=== PATIENT | female | born 1995 | race Caucasian/White ===

== ENCOUNTER 2018-11-15 18:12 | Emergency (ER) | payer OTHER, SELFPAY ==
[2018-11-15 18:16] VITALS: BP 121/56; PULSE 63; RESP 18; TEMP 36.9; O2SAT 100; BMI 22.6
[2018-11-15 18:46] LABS: RBC Urine 5-10/HPF (0-5/HPF)
[2018-11-15 18:47] LABS: Amorphous Sediment Urine 1+; Bacteria Urine Few (2-10); Squamous Epithelial Cell Urine 1-5 /HPF; WBC Urine 10-30/HPF (0-5/HPF)
[2018-11-15 18:48] LABS: Culture Indicated Urine Specimen Cultured
--- NOTE | 2018-11-15 19:00 | ED_ITS ---
HPI - Female Genitourinary General Chief complaint: Urogenital-Female Stated complaint: possible UTI Time Seen by Provider: 11/15/18 19:00 Source: patient Mode of arrival: ambulatory Limitations: no limitations History of Present Illness HPI Narrative: 23-year-old otherwise healthy female here for evaluation of less than 12 hr of dysuria and burning and lower abdominal pain. She states she started to not feel well last evening and things got worse as today went on. She has had a urinary tract infection the past states this feels like urinary tract infection. No fevers. No vomiting. No back pain. No bowel changes. Related Data Previous Rx's Medication Instructions Recorded nitrofurantoin monohyd/m-cryst 100 mg PO BID #10 cap 11/15/18 [Macrobid] phenazopyridine [Pyridium] 100 mg PO TID PRN 2 Days #6 tab 11/15/18 Allergies Allergy/AdvReac Type Severity Reaction Status Date / Time Penicillins Allergy Hives Verified 11/15/18 18:21 Review of Systems Constitutional Denies fever(s) and Denies headache(s) ENT Ears, Nose, Mouth, and Throat: Denies headache(s) Cardiovascular Denies chest pain and Denies dyspnea Respiratory Denies dyspnea Gastrointestinal Gastrointestinal: Reports abdominal pain, Denies nausea and Denies vomiting Genitourinary Reports dysuria, Denies flank pain, Denies urinary incontinence, Denies urinary hesitancy, Reports urinary urgency and Denies vaginal discharge Musculoskeletal Denies myalgias and Denies arthralgias Integumentary/Breasts Denies lesions and Denies rash Neurologic Denies headache(s) Hematologic/Lymphatic Comments: Not on anticoagulation [facility] Medical History Healthy adult (Acute) Surgical History No pertinent past surgical history (Acute) Social History Smoking Status: Never smoker Exam Initial Vital Signs Initial Vital Signs: Vital Signs Temperature 98.5 F 11/15/18 18:16 Pulse Rate 63 11/15/18 18:16 Respiratory Rate 18 11/15/18 18:16 Blood Pressure 121/56 L 11/15/18 18:16 Pulse Oximetry 100 11/15/18 18:16 Const General: cooperative, healthy appearing, comfortable, well developed, well groomed and No acute distress Orientation: alert, awake and oriented x3 Resp Effort & Inspection: normal respiratory effort Cardio Rate: regular rate Back/Spine/Pelvis Back: No CVA tenderness Skin Rashes: no rashes Neuro General: alert, awake and oriented x3 Extrem General: normal to inspection and capillary refill normal Psych Appearance: grossly normal and well kempt Course Orders Ordered: ED Orders 11/15/18 18:25 Urine Culture Stat Urine Microscopic Stat Discontinued Medications Ibuprofen (Advil) 800 mg PO NOW ONE Stop: 11/15/18 19:02 Last Admin: 11/15/18 19:13 Dose: 800 mg Nitrofurantoin Macrocrystals (Macrobid 100 Mg Capsule) 100 mg PO NOW ONE Stop: 11/15/18 19:13 Last Admin: 11/15/18 19:13 Dose: 100 mg Phenazopyridine HCl (Pyridium) 200 mg PO NOW ONE Stop: 11/15/18 19:02 Last Admin: 11/15/18 19:13 Dose: 200 mg Vital Signs - 8 hr 11/15/18 18:16 Temperature 98.5 F Pulse Rate 63 Respiratory Rate 18 Blood Pressure 121/56 L Pulse Oximetry 100 MDM - Female Genitourinary Lab Data Attestation: I reviewed the patient's lab results. Lab Results 11/15/18 Range/Units 18:25 Urine RBC 5-10/hpf H (0-5/HPF) Urine WBC 10-30/hpf H (0-5/HPF) Ur Squamous Epith Cells 1-5 /hpf Amorphous Sediment 1+ Urine Bacteria Few (2-10) H (None) Ur Culture Indicated? Specimen cultured Point of Care Testing Test Results Negative Urine Dip Bedside Urine Glucose Negative Bedside Urine Bilirubin - Negative Bedside Urine Ketone - Negative Urine Specific [place] 1.005 Bedside Urine Occult Blood +++ Bedside Urine pH 6.0 Bedside Urine Protein + 30 Bedside Urine Urobilinogen - Negative Bedside Urine Nitrite - Negative Bedside Urine Leukocytes ++ 125 Esterase MDM Narrative Medical decision making narrative: Patient with history and physical and lab report consistent with a urinary tract infection. Physical exam is not consistent with pyelonephritis. She was given 1st dose of antibiotics here in the emergency department along with Pyridium. Was sent home with prescriptions for these medications. She was given return precautions. She expressed understanding and agreement with plan. Discharge Plan Departure Patient Disposition: Home Clinical Impression: Urinary tract infection Discharge Date/Time: 11/15/18 19:15 Interventions: ED Discharge Assessment Last Done: 11/15/18 19:15 Instructions: DI for Urinary Tract Infection (UTI) Activity Restrictions/Additional Instructions: You were given your 1st dose of antibiotics here in the emergency department. Recommend that you fill the prescription tomorrow for both the peridium which is a bladder anesthetic and also the antibiotic prescription. Take them as directed. Increase your fluid intake. Return to the emergency department for any new or worsening symptoms. Prescriptions: New phenazopyridine [Pyridium] 100 mg tablet 100 mg PO TID PRN (Reason: pain) 2 Days Qty: 6 RF: 0 nitrofurantoin monohyd/m-cryst [Macrobid] 100 mg capsule 100 mg PO BID Qty: 10 RF: 0
[2018-11-15] MEDS: NITROFURANTOIN ER 100 MG CAPSULE PO (19:13)
[2018-11-15] MEDS: IBUPROFEN 400 MG TABLET 800 MG PO (19:13)
[2018-11-15] MEDS: PHENAZOPYRIDINE 100 MG TABLET 200 MG PO (19:13)
== END 2018-11-15 19:15 | disposition home or self-care (01) ==
PROVIDERS: Emergency Provider Emergency Medicine
DX: N39.0 Urinary tract infection, site not specified (principal)
CPT/HCPCS: 81003; 81015; 81025; 87077; 87086; 87186; 99283

== ENCOUNTER 2022-04-24 13:12 | Emergency (ER) | payer OTHER, SELFPAY ==
[2022-04-24 13:26] VITALS: BP 114/55; PULSE 70; RESP 14; TEMP 36.6; O2SAT 98; BMI 23.3
--- NOTE | 2022-04-24 14:55 | ED_ITS ---
HPI - Back Pain/Injury <NO Kelly - Last Filed: 04/24/22 15:01> General Chief Complaint: Back Pain/Injury Stated Complaint: Pulled a muscle in her back Time Seen by Provider: 04/24/22 14:33 Source: patient History of Present Illness HPI Narrative: This is a 27-year-old female who presents to the emergency department with midline this is low back pain after she lifted up a 50 lb weight two days ago. She states that she has a history of low back pain, states that she has gotten a referral to physical therapy in the past but she has not gone. Patient denies any weakness, sensation changes or radiation of her pain, denies any fever, chills, difficulty ambulating, or incontinence. Patient states that she used ice the 1st day and rested and this was helpful for her pain, states the last two days have forced her to lay down most of the time because she has pain with movement. She denies taking any medications prior to arrival. Patient denies any recent trauma, denies any hematuria. Denies any fever, chills, nausea, or vomiting. Related Data Previous Rx's Medication Instructions Recorded nitrofurantoin 100 mg PO BID #10 caps 11/15/18 monohydrate/macrocrystals 100 mg capsule (Macrobid) lidocaine 5 % topical patch 1 patch topical DAILY PRN pain #15 04/24/22 (Lidoderm) ea methocarbamol 500 mg tablet 500 mg PO BID PRN muscle spasm #14 04/24/22 tabs naproxen 250 mg tablet 250 mg PO BID PRN pain #20 tabs 04/24/22 Allergies Allergy/AdvReac Type Severity Reaction Status Date / Time Penicillins Allergy Hives Verified 04/24/22 13:26 Review of Systems <NO Kelly - Last Filed: 04/24/22 15:01> Review of Systems Narrative: General: denies fever, chills Head/Neck: denies headache, neck pain Eyes: denies visual changes, eye pain Cardio: denies chest pain, palpitations Respiratory: denies shortness of breath, cough GI: denies abdominal pain, nausea, vomiting, or diarrhea : denies dysuria, hematuria or flank pain MSK: denies new joint pain, muscle weakness or swelling, endorses some swelling over the musculature in her low back where she is tender Skin: denies rash, itching or wound Neuro: denies numbness, tingling, dizziness Patient History <NO Kelly - Last Filed: 04/24/22 15:01> Medical History Healthy adult Surgical History No pertinent past surgical history Social History Smoking Status: Never smoker Smoking Status: Never smoker alcohol intake frequency: a few times a week Substance Use Type: does not use Exam <NO Kelly - Last Filed: 04/24/22 15:01> Narrative Exam Narrative: Independently reviewed vitals signs and nursing notes. General: Awake, alert, nontoxic, no cardiorespiratory distress Head/Neck: Atraumatic, neck supple Eyes: EOMI, conjunctiva normal Nose: nares patent, no rhinorrhea Mouth/Throat: moist mucus membranes, posterior pharynx without erythema or lesion Cardio: Regular rate and rhythm, no peripheral edema Respiratory: respirations unlabored without wheezing, stridor, or rales. No retractions, hypoxia or tachypnea GI: Abdomen soft, nontender to palpation x4 quadrants, no guarding or rebound tenderness MSK: Moves all extremities, neurovascularly intact, range of motion without deficit, patient appears stiff and sore but does not have any range of motion deficit, can bend over, no radiation of her pain down her extremities, no lower extremity weakness, Skin: Normal capillary refill, no rash Neuro: Normal speech and cognition, normal gait Initial Vital Signs Initial Vital Signs: Vital Signs Temperature 97.9 F 04/24/22 13:26 Pulse Rate 70 04/24/22 13:26 Respiratory Rate 14 04/24/22 13:26 Blood Pressure 114/55 L 04/24/22 13:26 Pulse Oximetry 98 04/24/22 13:26 Oxygen Delivery Method 04/24/22 13:26 <Girish Castaneda DO - Last Filed: 04/24/22 16:17> Initial Vital Signs Initial Vital Signs: Vital Signs Temperature 97.9 F 04/24/22 13:26 Pulse Rate 70 04/24/22 13:26 Respiratory Rate 14 04/24/22 13:26 Blood Pressure 114/55 L 04/24/22 13:26 Pulse Oximetry 98 04/24/22 13:26 Oxygen Delivery Method 04/24/22 13:26 Course <NO Kelly - Last Filed: 04/24/22 15:01> Orders Ordered: Discontinued Medications Ketorolac Tromethamine (Ketorolac 10 Mg Tablet) 10 mg PO NOW ONE Stop: 04/24/22 14:48 Last Admin: 04/24/22 15:00 Dose: 10 mg Documented By: AT Lidocaine (Lidocaine Patch 1 Each Adh..Patch) 1 each TOP NOW ONE Stop: 04/24/22 14:48 Last Admin: 04/24/22 15:01 Dose: 1 each Documented By: AT Methocarbamol (Methocarbamol 500 Mg Tablet) 500 mg PO NOW ONE Stop: 04/24/22 14:48 Last Admin: 04/24/22 15:00 Dose: 500 mg Documented By: AT Vital Signs Vital signs: Vital Signs - 8 hr 04/24/22 13:26 Temperature 97.9 F Pulse Rate 70 Respiratory Rate 14 Blood Pressure 114/55 L Pulse Oximetry 98 Oxygen Delivery Method Room Air <Girish Castaneda DO - Last Filed: 04/24/22 16:17> Orders Ordered: Discontinued Medications Ketorolac Tromethamine (Ketorolac 10 Mg Tablet) 10 mg PO NOW ONE Stop: 04/24/22 14:48 Last Admin: 04/24/22 15:00 Dose: 10 mg Documented By: AT Lidocaine (Lidocaine Patch 1 Each Adh..Patch) 1 each TOP NOW ONE Stop: 04/24/22 14:48 Last Admin: 04/24/22 15:01 Dose: 1 each Documented By: AT Methocarbamol (Methocarbamol 500 Mg Tablet) 500 mg PO NOW ONE Stop: 04/24/22 14:48 Last Admin: 04/24/22 15:00 Dose: 500 mg Documented By: AT Vital Signs Vital signs: Vital Signs - 8 hr 04/24/22 13:26 Temperature 97.9 F Pulse Rate 70 Respiratory Rate 14 Blood Pressure 114/55 L Pulse Oximetry 98 Oxygen Delivery Method Room Air MDM - Back Pain/Injury <NO Kelly - Last Filed: 04/24/22 15:01> MDM Narrative Medical decision making narrative: This is a 27-year-old female with history of low back injury with chronic low back pain presents to the emergency department with exacerbation of her low back pain two days ago when she lifted up a 50 lb weight. She states that her pain is midline and sore, denies any weakness, sensation changes, difficulty ambulating, incontinence, or other concerning symptom. She states that she has [email or web address] insurance, has received a referral to physical therapy in the past but she has not con before. She denies any recent trauma. Patient was nontender over her spinal processes, no ecchymosis, crepitus, irregularities or palpable. She has muscle tension over her low lumbar paraspinal musculature. No CVA tenderness on exam, treated patient with p.o. Toradol in the emergency department, lidocaine patch, methocarbamol, gave her prescription of methocarbamol, lidocaine patches, and naproxen, encourage hydration, light activity without significant exertion, physical therapy follow-up and [place] get [place] through [email or web address]. Patient states understanding, Multiple etiologies of back pain considered including; Epidural abscess, cauda equina, mass occupying lesion, lumbar fracture, intra-abdominal pathology chronic neuropathic pain and other considered. Patient is appropriate and amenable to discharge home. Vital signs are stable on repeat examination is unremarkable. Patient has been informed of results. Patient has been given strict return to ER precautions for any new or worsening symptoms. Patient understands to follow up closely with outpatient providers as instructed. Patient understands plan and agrees to discharge home. All questions and concerns answered at this time. Discharge Plan Departure Patient Disposition: Home Clinical Impression: Strain of lumbar region Qualifiers: Encounter type: initial encounter Qualified Code(s): S39.012A - Strain of muscle, fascia and tendon of lower back, initial encounter Instructions: DI for Back Spasm, DI for Back Strain or Sprain Activity Restrictions/Additional Instructions: *You have been diagnosed with a low back strain. Please follow-up with [facility] for your physical therapy referral. This will be the most helpful for you long- term regarding your back pain. Please use the methocarbamol as needed for muscle spasms, use lidocaine patches if they are helpful, take ibuprofen and Tylenol at home every 6 hours, stay hydrated, try to be lightly active at home try to avoid being still for long periods of time so that you do not get stiff. Alternate heat and ice, gentle massage, and avoid stretching if it is significantly painful. Please return to the emergency department if you develop any weakness in your lower extremities, incontinence of bowel or bladder, numbness or tingling which is shooting down your leg. Follow-up with your primary doctor and hopefully this will get better with regular physical therapy soon. *What to do: *Please continue to take your regular medications as directed. [x ] New medication prescriptions sent to your pharmacy: [ [facility]] [ ] New medication written as a paper prescription [ ] No new medications given *Please follow up with your primary care provider in 2-3 days, call for an appointment. Let them know you were seen in the Emergency Department and that we asked that you be seen for follow-up. We will electronically transmit a record of today's note if your PCP is in our system *If you do not have a primary care provider please contact [phone] to establish care with one of the [facility] primary care providers. *Return to Emergency Department if you should have any new, worsening or concer bethany symptoms, such as [fever greater than 101F, chills, worsening pain, persistent vomiting or other bothersome symptoms] Prescriptions: New lidocaine [Lidoderm] 5 % adhesive patch,medicated 1 patch topical DAILY PRN (Reason: pain) Qty: 15 0RF Rx Instructions: leave on most painful area for up to 12 hrs methocarbamol 500 mg tablet 500 mg PO BID PRN (Reason: muscle spasm) Qty: 14 0RF naproxen 250 mg tablet 250 mg PO BID PRN (Reason: pain) Qty: 20 0RF Rx Instructions: take with food and water No Action nitrofurantoin monohyd/m-cryst [Macrobid] 100 mg capsule 100 mg PO BID Qty: 10 0RF Rx Instructions: must administer with a meal/food Referrals: [facility] [Outside] [facility] [Outside] Visit Report Forms: Patient Portal/API <Girish Castaneda, DO - Last Filed: 04/24/22 16:17> Cosign ED Attending Cosignature Attestation: Dr Castaneda Co-Sign Statement: I was available for consultation during this patient's emergency department visit. This chart is signed by myself for a dministrative purposes only. I did not have direct contact with this patient during this visit. They were seen independently by the APC.
[2022-04-24] MEDS: KETOROLAC 10 MG TABLET PO (15:00)
[2022-04-24] MEDS: methocarbamoL 500 MG TABLET PO (15:00)
[2022-04-24] MEDS: LIDOCAINE PATCH 1 EACH ADH..PATCH TOP (15:01)
== END 2022-04-24 15:08 | disposition home or self-care (01) ==
PROVIDERS: Emergency Provider Nurse Practitioner Critical Care Medicine
DX: S39.012A Strain of muscle, fascia and tendon of lower back, initial encounter (principal); X50.0XXA Overexertion from strenuous movement or load, initial encounter
CPT/HCPCS: 99283

== ENCOUNTER → 2023-11-13 08:18 | Outpatient (CLI) | payer OTHER, SELFPAY | PROVIDERS: Visit Provider Student in an Organized Health Care Education/Training Program | DX: J02.9 Acute pharyngitis, unspecified (principal) | CPT/HCPCS: 87070; 87077; 87147 ==

== ENCOUNTER 2024-03-24 11:16 | Emergency (ER) | payer OTHER, SELFPAY ==
[2024-03-24 11:18] VITALS: BP 122/71; PULSE 90; RESP 18; TEMP 36.9; O2SAT 100; BMI 25.8
--- NOTE | 2024-03-24 11:39 | DI.US.S_ITS ---
PROCEDURE: US OB <= 14 WEEKS FETUS INDICATIONS: bleeding OUTSIDE/PRIOR DATING DATA: Last menstrual period (LMP): Unsure. LMP-based estimated date of delivery ([place]): Not applicable. First dating scan (date and location): Today's exam. Estimated date of delivery ([place]) from first dating scan: Not applicable. TECHNIQUE: Real-time scanning was performed of the fetus and maternal pelvic organs, with image documentation. Endovaginal scanning was also performed to better visualize the fetus and maternal ovaries. COMPARISON: None. FINDINGS: No intrauterine identified. No adnexal mass. Endometrium measures 19 millimeters. Maternal organs: Ovaries demonstrated a left corpus luteum. IMPRESSION: of unknown location, as no intrauterine is seen and there is no adnexal mass. The differential includes early gestational , ectopic or miscarriage. Trending beta hCGs and sonographic follow-up as necessary. We strive to produce accurate, complete, and clear reports of imaging services. To assist us in improving patient care, this report was composed using standard report templates and voice recognition software. Therefore, it may contain abnormal punctuation, insertions and/or omissions. Occasional wrong-word or sound-alike substitutions may occur. Though we review the report and make efforts to correct it, we do recommend that the report be read carefully in proper context to recognize any text inaccuracies. Dictated by: Alexys Toney M.D. on 03/24/2024 at 13:08 Approved by: Alexys Toney M.D. on 03/24/2024 at 13:09
[2024-03-24 12:01] LABS: Urine Volume 10mL (spun)
[2024-03-24 12:06] LABS: Bacteria Urine None Seen; Culture Indicated Urine Cult Not Indicated; RBC Urine 1-5/HPF (0-5/HPF); Squamous Epithelial Cell Urine None Seen (0-5/HPF); WBC Urine None Seen (0-5/HPF)
--- NOTE | 2024-03-24 12:31 | ED.PREGNANCY ---
HPI - General Chief complaint: OB/Uterine Contractions Stated complaint: test for a miscarriage Time Seen by Provider: 03/24/24 12:26 Source: patient Mode of arrival: Ambulatory Limitations: no limitations History of Present Illness HPI Narrative: Patient is a 29-year-old healthy female presenting today with vaginal bleeding. She has been following [facility] she thinks she might be 6-7 weeks but unsure. She had a positive test at the clinic 2 days ago. She started having some spotting the last 2 days. Does not sound significant she only wore 1 pair of period underware yesterday and then 1 last night. She did pass some tissue. No excessive cramping. No dizziness or lightheadedness. They are currently trying to get no use of fertility drugs. No significant abdominal pain dizziness. She was instructed by a triage nurse to come to the ED for further evaluation. Related Data Previous Rx's Medication Instructions Recorded cefdinir 300 mg capsule 300 mg PO BID #10 caps 11/15/23 Allergies Allergy/AdvReac Type Severity Reaction Status Date / Time Penicillins Allergy Hives Verified 11/13/23 08:03 Exam Initial Vital Signs Initial Vital Signs: Vital Signs Temperature 98.4 F 03/24/24 11:18 Pulse Rate 90 03/24/24 11:18 Respiratory Rate 18 03/24/24 11:18 Blood Pressure 122/71 03/24/24 11:18 Pulse Oximetry 100 03/24/24 11:18 Oxygen Delivery Method Room Air 03/24/24 11:18 GENERAL: Alert 29-year-old female CARDIOVASCULAR: peripheral pulses in tact, cap refill <2 sec RESPIRATORY: No respiratory distress, speaks in full sentences without difficulty ABDOMEN: Soft, nontender, no guarding or rebound no significant right or left lower quadrant pain EXTREMITIES: Normal range of motion, no clubbing or edema. Neurovascularly intact NEUROLOGICAL: Cranial nerves II through XII grossly intact. Normal gait and speech. SKIN: Warm, dry, no petechiae, no rashes or lesions. Course Orders Ordered: ED Orders 03/24/24 11:25 Urine Microscopic Stat 03/24/24 11:39 US OB <= 14 weeks fetus Stat 03/24/24 12:06 ABO RH Type Stat CBC Auto Diff [Complete Blood Count AUTO DIFF] Stat CMP [Comprehensive Metabolic Panel] Stat HCG Quantitative /Beta subunit Stat Vital Signs Vital signs: Vital Signs - 8 hr 03/24/24 11:18 03/24/24 14:08 03/24/24 14:09 Temperature 98.4 F 99 F Pulse Rate 90 78 76 Respiratory Rate 18 16 Blood Pressure 122/71 111/60 Pulse Oximetry 100 100 Oxygen Delivery Method Room Air Room Air MDM - OB/Uterine Contractions Lab Data 03/24/24 12:06 03/24/24 12:06 Labs: Lab Results 03/24/24 03/24/24 Range/Units 11:25 12:06 WBC 5.5 (4.5-11.0) X10^3/uL RBC 4.31 (4.0-5.2) X10^6/uL Hgb 13.0 (12.0-16.0) g/dL Hct 38.7 (36-46) % MCV 89.9 (80-100) fL MCH 30.2 (26-34) PG MCHC 33.6 (30-36) % RDW 12.3 (11.6-14.8) % Plt Count 231 (150-400) X10^3/uL Neut % (Auto) 60.3 (50-75) % Lymph % (Auto) 30.6 (25-40) % Carbon % (Auto) 8.1 (3-14) % Eos % (Auto) 0.5 L (2-4) % Baso % (Auto) 0.5 (0-2) % Neut # (Auto) 3300 (4968-5073) /uL Lymph # (Auto) 1700 (0474-3374) /uL Carbon # (Auto) 400 (0-900) /uL Eos # (Auto) 0 (0-450) /uL Baso # (Auto) 0 (0-100) /uL Sodium 140 (137-145) mmol/L Potassium 4.1 (3.4-5.1) mmol/L Chloride 109 H (98-107) mmol/L Carbon Dioxide 26 (22-32) mmol/L BUN 7 (7-17) mg/dL Creatinine 0.56 (0.52-1.04) mg/dL Estimated GFR > 60 (>60) mL/min BUN/Creatinine Ratio 12.5 (6-22) Glucose 87 (70-100) mg/dL Calcium 8.9 (8.4-10.2) mg/dL Total Bilirubin 0.5 (0.2-1.3) mg/dL AST 21 (14-36) IU/L ALT 20 (<35) IU/L Alkaline Phosphatase 53 (38-126) U/L Total Protein 7.0 (6.3-8.2) g/dL Albumin 4.5 (3.5-5.0) g/dL Globulin 2.5 (1.7-4.1) g/dL Albumin/Globulin Ratio 1.8 (1.0-2.8) HCG, Quant 506.29 mIU/mL Urine RBC 1-5/hpf (0-5/HPF) Urine WBC None seen (0-5/HPF) Ur Squamous Epith Cells None seen (0-5/HPF) Urine Bacteria None seen (None) Ur Culture Indicated? Cult not indicated Vol Urine Centrifuged 10ml (spun) Blood Type O Positive Point of Care Testing Test Results Positive Urine Dip Bedside Urine Glucose Negative Bedside Urine Bilirubin - Negative Bedside Urine Ketone - Negative Urine Specific Cornish 1.015 Bedside Urine Occult Blood ++ Bedside Urine pH 6.5 Bedside Urine Protein - Negative Bedside Urine Urobilinogen - Negative Bedside Urine Nitrite - Negative Bedside Urine Leukocytes - Negative Esterase Imaging Data US - OB: Radiologist's Impression: PROCEDURE: US OB <= 14 WEEKS FETUS INDICATIONS: bleeding OUTSIDE/PRIOR DATING DATA: Last menstrual period (LMP): Unsure. LMP-based estimated date of delivery (SANTA): Not applicable. First dating scan (date and location): Today's exam. Estimated date of delivery ([place]ANTA) from first dating scan: Not applicable. TECHNIQUE: Real-time scanning was performed of the fetus and maternal pelvic organs, with image documentation. Endovaginal scanning was also performed to better visualize the fetus and maternal ovaries. COMPARISON: None. FINDINGS: No intrauterine identified. No adnexal mass. Endometrium measures 19 millimeters. Maternal organs: Ovaries demonstrated a left corpus luteum. IMPRESSION: of unknown location, as no intrauterine is seen and there is no adnexal mass. The differential includes early gestational , ectopic or miscarriage. Trending beta hCGs and sonographic follow-up as necessary. We strive to produce accurate, complete, and clear reports of imaging services. To assist us in improving patient care, this report was composed using standard report templates and voice recognition software. Therefore, it may contain abnormal punctuation, insertions and/or omissions. Occasional wrong-word or sound-alike substitutions may occur. Though we review the report and make efforts to correct it, we do recommend that the report be read carefully in proper context to recognize any text inaccuracies. Dictated by: Alexys Toney M.D. on 03/24/2024 at 13:08 [facility] Narrative Medical decision making narrative: Patient 29-year-old female male presenting today with bleeding. No excessive cramping some mild clots. Blood work has been reviewed she is hCG of 506, 0 positive blood type, CBC does not show significant anemia and CMP within normal limits Ultrasound does not identify an IUP yolk sac or evidence of intrauterine . No obvious evidence of ectopic On exam she is really minimally tender again low suspicion for ectopic. She is Rh positive no need for RhoGAM Discussion with patient threatened miscarriage. She does need a repeat hCG in 48 hours. Instructed her to call OBGYN outpatient blood work given strict return precautions. She overall appears well does not appear in severe distress or pain. Discharge Plan Departure Patient Disposition: Home Clinical Impression: Miscarriage, threatened, early Instructions: Threatened Miscarriage Activity Restrictions/Additional Instructions: *You have been diagnosed with threatened miscarriage *What to do: HCG is 506 Need repeat hCG in 40 worse as he if it is going up or down Ultrasound today does show evidence of , it may be too early to tell *Continue to take medications as directed Tylenol 1000 mg every 6 hours for [id number] pain *Follow up with your primary care provider in 2-3 days or call [phone] *Return to ER if you should have increasing pain excessive bleeding greater than 3 pads in 1 hour or any new, worsening or concerning symptoms Prescriptions: No Action cefdinir 300 mg capsule 300 mg PO BID Qty: 10 0RF Referrals: Miscellaneous,DoctorMD [Primary Care Provider] - Stand Alone Forms: Patient Portal/API
[2024-03-24 12:43] LABS: HCG Quantitative /Beta subunit 506.29 mIU/mL
[2024-03-24 12:46] LABS: Add Manual Diff / Slide Review NO; Basophils Absolute Auto 0 /uL (0-100); Basophils Percent Auto 0.5 % (0-2); Eosinophils Absolute Auto 0 /uL (0-450); Eosinophils Percent Auto 0.5 % (2-4); Hematocrit 38.7 % (36-46); Lymphocytes Absolute Auto 1700 /uL (1100-4500); Lymphocytes Percent Auto 30.6 % (25-40); Mean Corpuscular HGB Conc 33.6 % (30-36); Mean Corpuscular Hemoglobin 30.2 PG (26-34); Mean Corpuscular Volume 89.9 fL (80-100); Monocytes Absolute Auto 400 /uL (0-900); Monocytes Percent Auto 8.1 % (3-14); Neutrophils Absolute Auto 3300 /uL (1500-7000); Neutrophils Percent Auto 60.3 % (50-75); Platelet Count 231 X10^3/uL (150-400); Red Blood Cell Count 4.31 X10^6/uL (4.0-5.2); Red Cell Distribution Width 12.3 % (11.6-14.8); White Blood Cell Count 5.5 X10^3/uL (4.5-11.0)
[2024-03-24 12:55] LABS: Alanine Aminotransferase 20 IU/L (<35); Albumin 4.5 g/dL (3.5-5.0); Albumin Globulin Ratio 1.8 (1.0-2.8); Alkaline Phosphatase 53 U/L (38-126); Aspartate Aminotransferase 21 IU/L (14-36); BUN Creatinine Ratio 12.5 (6-22); Bilirubin Total 0.5 mg/dL (0.2-1.3); Blood Urea Nitrogen 7 mg/dL (7-17); Calcium 8.9 mg/dL (8.4-10.2); Carbon Dioxide 26 mmol/L (22-32); Chloride 109 mmol/L (98-107); Estimated Glomerular Filt Rate > 60 mL/min (>60); Globulin 2.5 g/dL (1.7-4.1); Glucose 87 mg/dL (70-100); HEMOLYSIS < 15 (0-50); Potassium 4.1 mmol/L (3.4-5.1); Sodium 140 mmol/L (137-145)
[2024-03-24 14:08] VITALS: PULSE 78; TEMP 37.2
[2024-03-24 14:09] VITALS: BP 111/60; PULSE 76; RESP 16; O2SAT 100
== END 2024-03-24 14:14 | disposition home or self-care (01) ==
PROVIDERS: Emergency Provider Emergency Medicine
DX: O20.0 Threatened abortion (principal); Z3A.00 Weeks of gestation of pregnancy not specified
CPT/HCPCS: 36415; 76801; 80053; 81003; 81015; 81025; 84702; 85025; 86900; 86901; 99283